=== PATIENT | male | born 1955 | race Caucasian/White ===

== ENCOUNTER 2021-02-21 18:26 | Emergency (ER) | payer MEDICARE, BC ==
[2021-02-21] MEDS ORDERED: Morphine 4 MG/ML Syringe ONE (18:37)
--- NOTE | 2021-02-21 18:43 | EDM.PDOC ---
ED HPI GENERAL MEDICAL PROBLEM - General Chief Complaint: Trauma Stated Complaint: HIP INJURY Time Seen by Provider: 02/21/21 18:41 Source of Information: Reports: Patient History Limitations: Reports: No Limitations - History of Present Illness INITIAL COMMENTS - FREE TEXT/NARRATIVE: Paul is a 65-year-old male who was brought in today as a trauma. Patient was on a trench and it fell fluid and up onto dirt landed on top of him patient was stuck there for a few minutes they were able to get them out. Patient is complaining of left hip pain and left rib pain patient denies hitting his head or have any LOC denies any back or spinal pain. Patient has no other complaints. Patient came in on the scoop and he also had low blood pressure 80/50. We were able get bilateral IV access started IV fluids we gave IV morphine. We will get patient off of the school and we palpated the spine there was no tenderness. We have portable x-ray does show a open pelvic fracture. We did not applied a pelvic binder to the patient. Also get a portable x-ray as well as may be shows 2 rib fractures on the left but no pneumothorax patient has bilateral breath sounds airways intact. We spoke to [facility] and they have excepted patient we will follow patient here for trauma. Left Hip Pain Score (Numeric/FACES): 5 - Related Data Allergies Allergy/AdvReac Type Severity Reaction Status Date / Time No Known Allergies Allergy Verified 02/21/21 18:45 Home Meds: Home Meds atorvaSTATin [Lipitor] 20 mg PO QPM 12/08/18 [History] Past Medical History HEENT History: Reports: Other (See Below) Other HEENT History: wears glasses Cardiovascular History: Reports: High Cholesterol Respiratory History: Reports: None Gastrointestinal History: Reports: None Genitourinary History: Reports: BPH Musculoskeletal History: Reports: None Neurological History: Reports: None Psychiatric History: Reports: None Endocrine/Metabolic History: Reports: None Hematologic History: Reports: None Immunologic History: Reports: None Oncologic (Cancer) History: Reports: None Dermatologic History: Reports: None - Past Surgical History Head Surgeries/Procedures: Reports: None HEENT Surgical History: Reports: Tonsillectomy Male Surgical History: Reports: TURP-Transurethral Resection of Prostate Review of Systems - Review of Systems Review Of Systems: Unable To Obtain Reason Not Obtained: status of patient ED EXAM, GENERAL - Physical Exam Exam: See Below Exam Limited By: Other General Appearance: Moderate Distress Eye Exam: Bilateral Eye: EOMI, PERRL Neck: Normal Inspection Respiratory/Chest: No Respiratory Distress, Lungs Clear, Normal Breath Sounds Cardiovascular: Normal Peripheral Pulses, Regular Rate, Rhythm GI/Abdominal: Normal Bowel Sounds, Soft, Non-Tender Extremities: No: Normal Range of Motion, Non-Tender (tenderness to pelvic crest) Neurological: Alert, Oriented, CN II-XII Intact #1 Interpretation EKG Date: 02/21/21 Time: 19:15 Rhythm: NSR Rate (Beats/Min): 87 ST-T: Normal Course - Vital Signs Last Recorded V/S: Last Vital Signs Temp 96.6 F L 02/21/21 18:28 Pulse 86 02/21/21 18:28 Resp 18 02/21/21 18:28 BP 103/50 L 02/21/21 18:28 Pulse Ox 95 02/21/21 18:28 - Orders/Labs/Meds Orders: Active Orders 24 hr Category Date Time Status Chest 1V Frontal [CR] Stat Exams 02/21/21 18:42 Taken Pelvis 1V or 2V [CR] Stat Exams 02/21/21 18:42 Taken COMPREHENSIVE METABOLIC PN,CMP [CHEM] Stat Lab 02/21/21 18:04 Received CREATINE KINASE,CK [CHEM] Stat Lab 02/21/21 18:04 Received ETHANOL BLOOD MEDICAL [CHEM] Stat Lab 02/21/21 18:04 Received LIPASE [CHEM] Stat Lab 02/21/21 18:04 Received MAGNESIUM [CHEM] Stat Lab 02/21/21 18:04 Received PHOSPHORUS [CHEM] Stat Lab 02/21/21 18:04 Received Labs: Laboratory Tests 02/21/21 02/21/21 Range/Units 18:04 18:04 WBC 22.90 H (4.0-11.0) K/uL RBC 4.54 (4.50-5.90) M/uL Hgb 14.5 (13.0-17.0) g/dL Hct 42.8 (38.0-50.0) % MCV 94.3 (80.0-98.0) fL MCH 31.9 (27.0-32.0) pg MCHC 33.9 (31.0-37.0) g/dL RDW Std Deviation 46.0 (28.0-62.0) fl RDW Coeff of Karen 13 (11.0-15.0) % Plt Count 235 (150-400) K/uL MPV 10.50 (7.40-12.00) fL Add Manual Diff YES Neutrophils % (Manual) 67 (48.0-80.0) % Band Neutrophils % 12 % Lymphocytes % (Manual) 16 (16.0-40.0) % Monocytes % (Manual) 5 (0.0-15.0) % Nucleated RBC % 0.0 /100WBC Absolute Seg Neuts 15.3 H (1.4-5.7) Band Neutrophils # 2.7 Lymphocytes # (Manual) 3.7 H (0.6-2.4) Monocytes # (Manual) 1.1 H (0.0-0.8) Nucleated RBCs # 0 K/uL Lactate 4.7 H* (0.20-2.00) mmol/L Meds: Medications Discontinued Medications Generic Name Dose Route Start Last Admin Trade Name Freq PRN Reason Stop Dose Admin Morphine Sulfate Confirm 02/21/21 18:37 Morphine 4 Mg/Ml Syringe Administered 02/21/21 18:38 Dose 4 mg .ROUTE .STK-MED ONE Departure - Departure Time of Disposition: 19:16 Disposition: DC/Tfer to Acute Hospital 02 Condition: Fair Clinical Impression: Pelvic ring fracture - Discharge Information Referrals: Stu Christina MD [Primary Care Provider] - Forms: ED Department Discharge Critical Care Note - Critical Care Note Total Time (mins): 40 Comments: Critical Care Procedure Note Authorized and Performed by: Dr. Hardy Total critical care time: Approximately Due to a high probability of clinically significant, life threatening deterioration, the patient required my highest level of preparedness to intervene emergently and I personally spent this critical care time directly and personally managing the patient. This critical care time included obtaining a history; examining the patient; pulse oximetry; ordering and review of studies; arranging urgent treatment with development of a management plan; evaluation of patient's response to treatment; frequent reassessment; and, discussions with other providers. This critical care time was performed to assess and manage the high probability of imminent, life-threatening deterioration that could result in multi-organ failure. It was exclusive of separately billable procedures and treating other patients and teaching time. Sepsis Event Note (ED) - Focused Exam Vital Signs: Vital Signs Temp Pulse Resp BP Pulse Ox 02/21/21 18:28 96.6 F L 86 18 103/50 L 95 - My Orders Last 24 Hours: My Active Orders 02/21/21 18:04 COMPREHENSIVE METABOLIC PN,CMP [CHEM] Stat CREATINE KINASE,CK [CHEM] Stat ETHANOL BLOOD MEDICAL [CHEM] Stat LIPASE [CHEM] Stat MAGNESIUM [CHEM] Stat PHOSPHORUS [CHEM] Stat 02/21/21 18:42 Chest 1V Frontal [CR] Stat Pelvis 1V or 2V [CR] Stat - Assessment/Plan Last 24 Hours: My Active Orders 02/21/21 18:04 COMPREHENSIVE METABOLIC PN,CMP [CHEM] Stat CREATINE KINASE,CK [CHEM] Stat ETHANOL BLOOD MEDICAL [CHEM] Stat LIPASE [CHEM] Stat MAGNESIUM [CHEM] Stat PHOSPHORUS [CHEM] Stat 02/21/21 18:42 Chest 1V Frontal [CR] Stat Pelvis 1V or 2V [CR] Stat Plan: This is a 5-year-old male presents today as a trauma. Patient fell to a trench and had dirt landed on top of [place] about a few deep. Patient had no LOC or head injury. We waiting IV access patient had a low blood pressure was given IV fluids Ricco. Patient has spine read no tenderness. We did portable x-ray that showed open pelvic fracture. We then applied a pelvic binder and tighten it. Patient blood pressures of in the low 100s patient continues to receive IV fluids. Patient father has referred to the left but has bilateral breath sounds no ptx on x-ray. We spoke to trauma center at [place] and will transfer patient over.Q
[2021-02-21] MEDS ORDERED: Morphine 4 MG/ML Syringe IVPUSH ONE (19:19)
[2021-02-21 19:24] LABS: BLOOD UREA NITROGEN,BUN 30 mg/dL (7.0-18.0); CARBON DIOXIDE,CO2 22.1 mmol/L (21.0-32.0); CHLORIDE,CL 104 mmol/L (98-107); GLUCOSE RANDOM 177 mg/dL (74-106); LIPASE 131 U/L (73-393); POTASSIUM,K 3.6 mmol/L (3.5-5.1); SODIUM,NA 140 mmol/L (136-148)
[2021-02-21 19:27] VITALS: BP 138/84; PULSE 91
--- NOTE | 2021-02-21 19:46 | CR ---
HISTORY: Trauma. Patient fell into a trench and then was covered with dirt. COMPARISON: Chest two views from 09/04/2008 FINDINGS: A portable supine AP view of the chest was obtained at 1851 hours. There are acute, nondisplaced fractures of the left posterior-lateral 5th through 7th ribs and a possible fracture of the left posterior-lateral 4th rib. This is associated with a new mild left pleural hematoma adjacent to the fractures. There is no sign of any associated pneumothorax, pulmonary contusion, or pleural effusion. Sensitivity for pneumothorax and pleural effusion is limited by supine positioning. The lungs remain clear. No focal or diffuse infiltrates are present. The heart remains normal in size. The mediastinum is normal in appearance. The rest of the osseous structures are normal in appearance for the patient`s age. IMPRESSION: Acute, nondisplaced fractures of the left posterior-lateral 5th through 7th ribs with possible nondisplaced fracture of the left posterior-lateral 4th ribs. Small pleural hematoma adjacent to the fractures. No sign of pneumothorax, although sensitivity is limited by supine positioning. No sign of any pleural effusion, also limited by supine positioning. Otherwise no active disease seen in the chest. Dictated by Caleb Rosales MD @ Feb 21 2021 7:40PM Signed by Dr. Caleb Rosales @ Feb 21 2021 7:45PM
--- NOTE | 2021-02-21 19:46 | CR ---
Indication: Trauma, found a trash Technique: Supine AP view of the pelvis Comparison: None Findings/Impression: There is diastasis of the symphysis pubis up to 3 cm. Displaced fracture is seen along the medial right acetabulum. The hip joints are normally located. Consider follow-up CT for better fracture delineation. Dictated by Stevie Solis MD @ Feb 21 2021 7:43PM Signed by Dr. Stevie Solis @ Feb 21 2021 7:45PM
== END 2021-02-21 19:25 ==
LOC: MW.ED 18:26
DX: S32.810B Multiple fractures of pelvis with stable disruption of pelvic ring, initial encounter for open fracture (principal); S32.471A Displaced fracture of medial wall of right acetabulum, initial encounter for closed fracture; E78.00 Pure hypercholesterolemia, unspecified; Z79.899 Other long term (current) drug therapy; V86.56XA Driver of dirt bike or motor/cross bike injured in nontraffic accident, initial encounter
CPT/HCPCS: 36415; 71045; 71045-26; 72170; 72170-26; 80053; 80307; 82550; 83605; 83690; 83735; 84100; 85025; 93005; 93010; 99291

== ENCOUNTER 2022-01-01 07:18 | Day surgery (SDC) | payer MEDICARE, BC ==
[~2022-01-01 07:18] MED LIST: Lactated Ringers 1,000 ML IV SCH; Sodium Chloride 0.9% 10 ML Syringe FLUSH PRN; Sodium Chloride 0.9% 2.5 ML Syringe FLUSH PRN; Sodium Chloride 0.9% 20 ML SDV IV PRN
[2022-01-01] MEDS ORDERED: Propofol 200 MG/20 ML SDV ONE (07:21)
[2022-01-01] MEDS ORDERED: fentaNYL 100 MCG/2 ML SDV ONE (07:21)
[2022-01-01 09:38] VITALS: BP 122/70; PULSE 62
== END 2022-01-01 09:25 | disposition home or self-care (01) ==
LOC: MW.SDS 07:18
PROVIDERS: ATTEND Surgery
DX: Z12.11 Encounter for screening for malignant neoplasm of colon (principal); D12.3 Benign neoplasm of transverse colon; D12.5 Benign neoplasm of sigmoid colon; N40.0 Benign prostatic hyperplasia without lower urinary tract symptoms; E78.00 Pure hypercholesterolemia, unspecified; Z79.82 Long term (current) use of aspirin; Z79.899 Other long term (current) drug therapy; Z98.890 Other specified postprocedural states
CPT/HCPCS: 45380; J2704; J3010; J7120; 00812